=== PATIENT | male | born 1975 | race Caucasian/White ===

== ENCOUNTER 2016-06-20 11:21 | Emergency (ER) | payer BC, OTHER ==
[~2016-06-20] VITALS: Ht 177.8 cm; Wt 100.0 kg
[~2016-06-20 11:21] MED LIST: AMOX250C CHEW; PROMSYP PO; VENTAER INH; Z.0.NO CURRENT MEDS; spacer
[2016-06-20 11:23] VITALS: BP 170/98; PULSE 97; RESP 16; TEMP 98.2; O2SAT 95
[2016-06-20 12:11] LABS: AUTOMATED NEUTROPHIL # 5.1 TH/MM3 (1.8-7.7); BASOPHIL % 0.5 % (0.0-2.0); EOSINOPHIL # 0.2 TH/MM3 (0-0.4); EOSINOPHIL % 1.9 % (0.0-4.0); HEMO FLAGS DIFF FINAL; LYMPH % 28.8 % (9.0-44.0); LYMPHOCYTE # 2.4 TH/MM3 (1.0-4.8); MEAN CELL VOLUME 85.5 FL (80.0-100.0); MEAN CORPUSCULAR HEMOGLOBIN 29.3 PG (27.0-34.0); MEAN CORPUSCULAR HGB CONC 34.3 % (32.0-36.0); MONO % 8.6 % (0.0-8.0); NEUT % 60.2 % (16.0-70.0); PLATELET COUNT 242 TH/MM3 (150-450); RED BLOOD COUNT 5.62 MIL/MM3 (4.50-5.90); RED CELL DISTRIBUTION WIDTH 13.4 % (11.6-17.2); WHITE BLOOD COUNT 8.5 TH/MM3 (4.0-11.0)
[2016-06-20 12:20] LABS: BLOOD, URINE NEG (NEG); COMMENT (UR) CULT NOT INDICATED; CULTURE IF INDICATED CULT NOT INDICATED; GLUCOSE,URINE NEG (NEG); KETONE, URINE NEG (NEG); NITRITE,URINE NEG (NEG); PH, URINE 7.5 (5.0-8.5); URINE COLOR YELLOW (YELLW/STRAW)
[2016-06-20 12:30] LABS: BICARBONATE 29.9 MEQ/L (21.0-32.0); POTASSIUM 3.9 MEQ/L (3.5-5.1)
--- NOTE | 2016-06-20 14:04 | PD ---
HPI Chief Complaint: Flank/Kidney Pain Time Seen by Provider: 13:53 Travel History International Travel<30 days: No Contact w/Intl Traveler<30days: No Traveled to known affect area: No History of Present Illness HPI 40-year-old male complains of right flank pain. Patient states that the pain started a week ago. Patient states the pain aching pain is sharp pain localized to right flank area. Patient denies any pain radiation. Patient states that he has nausea with the pain. Patient has history of kidney stone in the past. Patient was seen by Dr. Padilla, urologist in [facility]. CT scan of the abdomen and pelvis done in the office however patient does not know the results. Patient was given pain medication in the office and prescription Tylenol with codeine for pain. Patient states that he had persistent right flank pain despite taking Tylenol with codeine. Patient is 18 fever chills. Patient denied dysuria or frequency. On a scale of 1-10 the pain is an 8. PFSH Past Medical History Diminished Hearing: No Past Surgical History Abdominal Surgery: Yes (HERNIA REPAIR) Appendectomy: Yes Oral Surgery: Yes (WISDOM TEETH CUT OUT 12/14/2007) Other Surgery: Yes (SURGERY ) Social History Alcohol Use: Yes (SOCIALLY) Tobacco Use: No Substance Use: No Allergies-Medications (Allergen,Severity, Reaction): Coded Allergies: No Known Allergies (Verified , 06/20/16) Reported Meds & Prescriptions Reported Meds & Active Scripts Active No Active Prescriptions or Reported Medications Review of Systems General / Constitutional: No: Fever Eyes: No: Visual changes HENT: No: Headaches Cardiovascular: No: Chest Pain or Discomfort Respiratory: No: Shortness of Breath Gastrointestinal: Positive: Nausea, No: Abdominal Pain Genitourinary: No: Dysuria Musculoskeletal: No: Pain Skin: No Rash Neurologic: No: Weakness Psychiatric: No: Depression Endocrine: No: Polydipsia Hematologic/Lymphatic: No: Easy Bruising Physical Exam Narrative GENERAL: Well-nourished, well-developed patient. SKIN: Warm and dry. HEAD: Normocephalic. EYES: No scleral icterus. No injection or drainage. NECK: Supple, trachea midline. No JVD or lymphadenopathy. CARDIOVASCULAR: Regular rate and rhythm without murmurs, gallops, or rubs. RESPIRATORY: Breath sounds equal bilaterally. No accessory muscle use. GASTROINTESTINAL: Abdomen soft, non-tender, nondistended. MUSCULOSKELETAL: No cyanosis, or edema. BACK: Patient has moderate tenderness on palpation right flank area. Neurologic exam normal. Data Data Last Documented VS Vital Signs Date Time Temp Pulse Resp B/P Pulse Ox O2 Delivery O2 Flow Rate FiO2 06/20/16 14:30 74 18 132/67 99 Room Air 06/20/16 11:23 98.2 Orders Urinalysis - C+S If Indicated (06/20/16 11:41) Complete Blood Count With Diff (06/20/16 11:41) Basic Metabolic Panel (Bmp) (06/20/16 11:41) Ct Abd/Pel W/O Iv Contrast (06/20/16 14:00) Sodium Chlor 0.9% 1000 Ml Inj (Ns 1000 M (06/20/16 14:15) Ketorolac Inj (Toradol Inj) (06/20/16 14:15) Ondansetron Inj (Zofran Inj) (06/20/16 14:15) Morphine Inj (Morphine Inj) (06/20/16 14:15) Labs Laboratory Tests Test 06/20/16 06/20/16 11:59 12:00 White Blood Count 8.5 TH/MM3 Red Blood Count 5.62 MIL/MM3 Hemoglobin 16.5 GM/DL Hematocrit 48.0 % Mean Corpuscular Volume 85.5 FL Mean Corpuscular Hemoglobin 29.3 PG Mean Corpuscular Hemoglobin 34.3 % Concent Red Cell Distribution Width 13.4 % Platelet Count 242 TH/MM3 Mean Platelet Volume 8.2 FL Neutrophils (%) (Auto) 60.2 % Lymphocytes (%) (Auto) 28.8 % Monocytes (%) (Auto) 8.6 % Eosinophils (%) (Auto) 1.9 % Basophils (%) (Auto) 0.5 % Neutrophils # (Auto) 5.1 TH/MM3 Lymphocytes # (Auto) 2.4 TH/MM3 Monocytes # (Auto) 0.7 TH/MM3 Eosinophils # (Auto) 0.2 TH/MM3 Basophils # (Auto) 0.0 TH/MM3 CBC Comment DIFF FINAL Differential Comment Sodium Level 140 MEQ/L Potassium Level 3.9 MEQ/L Chloride Level 103 MEQ/L Carbon Dioxide Level 29.9 MEQ/L Anion Gap 7 MEQ/L Blood Urea Nitrogen 11 MG/DL Creatinine 0.90 MG/DL Estimat Glomerular Filtration 93 ML/MIN Rate Random Glucose 95 MG/DL Calcium Level 9.1 MG/DL Urine Color YELLOW Urine Turbidity CLEAR Urine pH 7.5 Urine Specific [place] 1.012 Urine Protein NEG mg/dL Urine Glucose (UA) NEG mg/dL Urine Ketones NEG mg/dL Urine Occult Blood NEG Urine Nitrite NEG Urine Bilirubin NEG Urine Urobilinogen LESS THAN 2.0 MG/DL Urine Leukocyte Esterase NEG Urine RBC 3 /hpf Microscopic Urinalysis Comment CULT NOT INDICATED MDM Medical Decision Making Medical Screen Exam Complete: Yes Emergency Medical Condition: Yes Interpretation(s) 1521 PM. CBC within normal limit. BMP within normal limit. UA is negative. CT scan abdomen pelvis showed nonobstructive stone bilateral kidneys. Differential Diagnosis Differential diagnosis including nephrolithiasis, pyelonephritis, musculoskeletal. Narrative Course 40-year-old male with right flank pain. History kidney stone. Normal saline solution 1 25 cc an hour. Morphine 2 mg IV. Zofran 4 mg IV. Toradol 30 mg IV. Diagnosis Primary Impression: Nephrolithiasis Patient Instructions: General Instructions Additional Instructions: Medication as needed for pain. Moist heat to the back. Follow-up with urologist and personal physician. Return if worse. Scripts [Phenergan W Codein] No Conflict Check10 Ml PO Q6HR #180 Prov:Remigio Garza MD 06/20/16 Disposition: 01 DISCHARGE HOME Condition: Stable Remigio Garza MD Jun 20, 2016 14:04
[2016-06-20] MEDS ORDERED: ONDANSETRON HCL 4 MG/2 ML VIAL IV PUSH ONE (14:15)
[2016-06-20] MEDS ORDERED: KETOROLAC TROMETHAMINE 30 MG/ML (IVP) VIAL IV PUSH ONE (14:15)
[2016-06-20] MEDS ORDERED: SODIUM CHLOR 0.9% 1000 ML INJ 1,000 ML IV ONE (14:15)
[2016-06-20] MEDS ORDERED: MORPHINE SULFATE 4 MG/ML INJ IV PUSH ONE (14:15)
[2016-06-20 14:30] VITALS: BP 132/67; PULSE 74; RESP 18; O2SAT 99
--- NOTE | 2016-06-20 15:09 | RADRPT ---
EXAM DATE/TIME: 06/20/2016 14:53 [facility] COMPARISON: No previous studies available for comparison. INDICATIONS : Right flank pain; evaluate for renal stone. ORAL CONTRAST: No oral contrast ingested. RADIATION DOSE: 8.49 CTDIvol (mGy) MEDICAL HISTORY : Hernia. SURGICAL HISTORY : Appendectomy. Hernia repair. ENCOUNTER: Initial ACUITY: 1 week PAIN SCALE: 7/10 LOCATION: Right flank TECHNIQUE: Volumetric scanning of the abdomen and pelvis was performed. Using automated exposure control and ad justment of the mA and/or kV according to patient size, radiation dose was kept as low as reasonably achievable to obtain optimal diagnostic quality images. The lack of IV contrast limits the diagnosis for certain organ pathology. FINDINGS: LOWER LUNGS: The visualized lower lungs are clear. LIVER: Homogeneous density. Probable 9 mm hepatic cyst posterior right lobe of the liver. There is no dilat ion of the biliary tree. No calcified gallstones. SPLEEN: Normal size without lesion. PANCREAS: Within normal limits. KIDNEYS: Normal in size and shape. There is no mass or hydronephrosis. 5 mm nonobstructing stone upper/mid p ole right kidney. 4 mm nonobstructing stone upper pole left kidney. 2.2 cm midpole right renal cyst. ADRENAL GLANDS: Within normal limits. VASCULAR: There is no aortic aneurysm. BOWEL/MESENTERY: The stomach, small bowel, and colon demonstrate no acute abnormality. There is no free intraperitone al air or fluid. No inflammatory changes. ABDOMINAL WALL: Within normal limits. RETROPERITONEUM: There is no lymphadenopathy. BLADDER: No wall thickening or mass. REPRODUCTIVE: Within normal limits. INGUINAL: There is no lymphadenopathy or hernia. MUSCULOSKELETAL: Within normal limits for patient age. CONCLUSION: 1. 5 mm nonobstructing stone mid to upper pole right kidney 2. 4 mm nonobstructive stone upper pole left kidney 3. No hydronephrosis. 4. 9 mm probable hepatic cyst. 5. 2.2 cm right renal cyst. Everton Vickers MD on June 20, 2016 at 15:04 Board Certified Radiologist. This report was verified electronically.
[2016-06-20] MEDS ORDERED: PHENERGAN W CODEIN PO (15:29)
== END 2016-06-20 15:56 | disposition home or self-care (01) ==
LOC: NEPA 11:21
DX: N20.0 Calculus of kidney (principal); R50.9 Fever, unspecified; R11.0 Nausea
CPT/HCPCS: 74176; 80048; 81001; 85025; 96374; 96375; 99284; J1885; J2270; J2405; J7030